=== PATIENT | female | born 1945 | race Caucasian/White ===

== ENCOUNTER → 2020-03-09 09:52 | Outpatient (BNVA) | payer MEDICARE, OTHER, SELFPAY | PROVIDERS: PCP Internal Medicine; Visit Provider Nurse Practitioner Family | DX: G47.33 Obstructive sleep apnea (adult) (pediatric) (principal) | CPT/HCPCS: Q3014 ==

== ENCOUNTER → 2020-09-07 08:38 | Outpatient (BNVA) | payer MEDICARE, OTHER, SELFPAY | PROVIDERS: PCP Internal Medicine; Visit Provider Nurse Practitioner Family | CPT/HCPCS: Q3014 ==

== ENCOUNTER → 2021-03-01 09:19 | Outpatient (REF) | payer MEDICARE, OTHER, SELFPAY | LOC: HO.SL 09:19 | PROVIDERS: Visit Provider Nurse Practitioner Family | DX: G47.33 Obstructive sleep apnea (adult) (pediatric) (principal) | CPT/HCPCS: 99211 ==

== ENCOUNTER 2021-09-28 21:30 | Outpatient (REF) | payer MEDICARE, OTHER, SELFPAY | END 2021-09-28 21:31 | disposition home or self-care (01) | LOC: HO.MMNH1L 21:30 | PROVIDERS: Visit Provider Family Medicine | DX: Z13.89 Encounter for screening for other disorder (principal) ==

== ENCOUNTER 2021-11-21 07:26 | Outpatient (REF) | payer OTHER, MEDICARE, SELFPAY | END 2021-11-21 07:27 | disposition home or self-care (01) | LOC: HO.MMNH2L 07:26 | PROVIDERS: Visit Provider Family Medicine | DX: Z13.89 Encounter for screening for other disorder (principal) ==